=== PATIENT | female | born 1975 | race Caucasian/White ===

== ENCOUNTER 2020-01-02 11:59 | Inpatient (IN) ==
[2020-01-02] MEDS ORDERED: Ibuprofen 600 MG TABLET PO ONE (12:20)
[2020-01-02 12:43] LABS: Hematocrit 40.5 % (35.3-44.9); Hemoglobin 13.4 g/dL (11.5-15.4); Mean Corpuscular HGB Conc 33.1 g/dL (31.6-35.5); Mean Corpuscular Hemoglobin 30.2 pg (28.0-33.3); Mean Corpuscular Volume 91.4 fL (83.0-100.0); Mean Platelet Volume 9.7 fL (9.4-12.4); Platelet Count 303 K/mcL (140-400); Red Blood Count 4.43 M/mcL (3.82-4.97); Red Cell Distribution Width 12.2 % (11.5-14.5); White Blood Count 8.2 K/mcL (4.3-11.1)
[2020-01-02 13:09] LABS: Alanine Aminotransferase 11 Units/L (7-52); Albumin 4.3 g/dL (3.5-5.7); Albumin/Globulin Ratio 1.6 (1.1-2.2); Alkaline Phosphatase 51 Units/L (34-104); Aspartate Amino Transferase 13 Units/L (13-39); BUN/Creatinine Ratio 26 (6-26); Bilirubin,Direct 0.1 mg/dL (0.0-0.2); Bilirubin,Indirect 0.3 mg/dL (0.0-1.0); Bilirubin,Total 0.4 mg/dL (0.3-1.0); Blood Urea Nitrogen 13 mg/dL (6-20); Calcium 9.3 mg/dL (8.6-10.3); Carbon Dioxide 25 mEq/L (23-29); Chloride 105 mEq/L (98-107); Globulin 2.7 g/dL (2.4-3.5); Glucose 95 mg/dL (70-105); Lipase 21 Units/L (11-82); Osmolality,Calculated 288 (280-300); Potassium 3.6 mEq/L (3.5-5.1); Sodium 139 mEq/L (136-145); eGFR For African Americans > 60 (> 60); eGFR For Non-African Americans > 60 (> 60)
[2020-01-02 14:01] LABS: Troponin I < 0.03 ng/mL (< 0.04)
[2020-01-02] MEDS ORDERED: Aspirin 325 MG TABLET PO ONE (16:01)
[2020-01-02] MEDS ORDERED: Naloxone 0.4 MG/ML INJ IVP PRN (16:37)
[2020-01-02] MEDS ORDERED: Acetaminophen 325 MG TABLET PO PRN (17:33)
[2020-01-02] MEDS ORDERED: Ringers Solution, Lactated 1,000 ML IVC SCH (17:45)
[2020-01-02] MEDS: *HR* HYDROcodone/Acet 5/325 mg TABLET PO PRN ×2 (17:59→23:39)
[2020-01-02] MEDS: Pantoprazole 40 MG VIAL IVP SCH (17:59)
[2020-01-02] MEDS: Nicotine 21 MG PATCH.TD24 TD SCH (19:31)
[2020-01-02 19:57] LABS: Bilirubin,Urine Negative (Negative); Blood,Urine Negative (Negative); Clarity,Urine Clear (Clear); Color,Urine Colorless (Yellow); Glucose,Urine (UA) Normal (Normal); Ketones,Urine Trace mg/dL (Negative); Leukocyte Esterase,Urine Negative (Negative); Nitrite,Urine Negative (Negative); Protein,Urine Negative (Neg-Trace); Specific Gravity,Urine 1.009 (1.010-1.025); Urobilinogen,Urine Normal (Normal)
[2020-01-02 20:05] LABS: Amphetamine Screen,Urine Negative ng/mL (Cutoff=1000); Barbiturate Screen,Urine Negative ng/mL (Cutoff=200); Benzodiazepines Screen,Urine Negative ng/mL (Cutoff=200); Cannabinoid Screen,Urine Negative ng/mL (Cutoff = 50); Cocaine Screen,Urine Negative ng/mL (Cutoff= 300); Opiate Screen,Urine Negative ng/mL (Cutoff=300); Phencyclidine Screen,Urine Negative ng/mL (Cutoff=25)
[2020-01-02] MEDS ORDERED: Melatonin 3 MG TABLET PO ONE (23:32)
[2020-01-03 03:29] LABS: Basophils % 0.5 %; Eosinophils # 0.1 K/mcL (0.0-0.6); Eosinophils % 1.1 %; Hematocrit 35.3 % (35.3-44.9); Immature Granulocytes % 0.3 % (0-4); Lymphocytes # 3.4 K/mcL (0.6-4.6); Lymphocytes % 45.8 %; Mean Corpuscular HGB Conc 32.6 g/dL (31.6-35.5); Mean Corpuscular Hemoglobin 30.6 pg (28.0-33.3); Mean Corpuscular Volume 93.9 fL (83.0-100.0); Mean Platelet Volume 9.5 fL (9.4-12.4); Monocytes # 0.4 K/mcL (0.0-1.3); Monocytes % 4.8 %; Neutrophils # 3.5 K/mcL (1.6-8.9); Platelet Count 240 K/mcL (140-400); Red Blood Count 3.76 M/mcL (3.82-4.97); Red Cell Distribution Width 12.2 % (11.5-14.5); Segmented Neutrophils % 47.5 %; White Blood Count 7.3 K/mcL (4.3-11.1)
[2020-01-03 03:32] LABS: Hemoglobin 11.5 g/dL (11.5-15.4)
[2020-01-03 03:49] LABS: BUN/Creatinine Ratio 29 (6-26); Blood Urea Nitrogen 16 mg/dL (6-20); Calcium 8.7 mg/dL (8.6-10.3); Carbon Dioxide 26 mEq/L (23-29); Chloride 106 mEq/L (98-107); Chol/HDL Ratio 3.7 (0-4.9); Glucose 101 mg/dL (70-105); Osmolality,Calculated 287 (280-300); Potassium 3.5 mEq/L (3.5-5.1); Sodium 138 mEq/L (136-145); eGFR For African Americans > 60 (> 60); eGFR For Non-African Americans > 60 (> 60)
[2020-01-03] MEDS ORDERED: Regadenoson 0.4 MG/5 ML SYRINGE IVP ONE (06:19)
[2020-01-03 08:17] LABS: Estimated Average Glucose 126 mg/dl
[2020-01-03] MEDS ORDERED: *HR* LORazepam 2 MG/ML VIAL IVP ONE (09:10)
[2020-01-03] MEDS: Nicotine 21 MG PATCH.TD24 TD SCH (11:50)
[2020-01-03] MEDS: Aspirin Enteric Coated 81 MG Tablet PO SCH (11:51)
[2020-01-03] MEDS: *HR* OxyCODONE Immed Rel 5 MG TABLET PO PRN ×2 (11:51→20:41)
[2020-01-03] MEDS: Pantoprazole 40 MG VIAL IVP SCH (11:52)
[2020-01-03] MEDS: *HR* HYDROcodone/Acet 5/325 mg TABLET PO PRN (17:11)
[2020-01-03] MEDS: *HR* Heparin 5,000 UNIT/ML VIAL SQ SCH (17:11)
[2020-01-03] MEDS ORDERED: Ondansetron 4 MG/2 ML VIAL IVP ONE (21:58)
[2020-01-04] MEDS ORDERED: *HR* LORazepam 2 MG/ML VIAL IVP ONE ×2 (01:41→10:01)
[2020-01-04 02:53] LABS: Hematocrit 36.8 % (35.3-44.9); Hemoglobin 11.6 g/dL (11.5-15.4); Mean Corpuscular HGB Conc 31.5 g/dL (31.6-35.5); Mean Corpuscular Hemoglobin 29.7 pg (28.0-33.3); Mean Corpuscular Volume 94.4 fL (83.0-100.0); Mean Platelet Volume 9.8 fL (9.4-12.4); Platelet Count 248 K/mcL (140-400); Red Cell Distribution Width 11.9 % (11.5-14.5); White Blood Count 7.9 K/mcL (4.3-11.1)
[2020-01-04 03:10] LABS: BUN/Creatinine Ratio 37 (6-26); Blood Urea Nitrogen 18 mg/dL (6-20); Calcium 8.8 mg/dL (8.6-10.3); Carbon Dioxide 26 mEq/L (23-29); Chloride 105 mEq/L (98-107); Glucose 135 mg/dL (70-105); Osmolality,Calculated 290 (280-300); Potassium 3.5 mEq/L (3.5-5.1); Sodium 138 mEq/L (136-145); eGFR For African Americans > 60 (> 60); eGFR For Non-African Americans > 60 (> 60)
[2020-01-04] MEDS ORDERED: Metoclopramide 10 MG/2 ML VIAL IVP ONE (03:25)
[2020-01-04] MEDS: *HR* Heparin 5,000 UNIT/ML VIAL SQ SCH ×2 (03:30→14:50)
[2020-01-04] MEDS: Pantoprazole 40 MG VIAL IVP SCH (08:22)
[2020-01-04] MEDS: Nicotine 21 MG PATCH.TD24 TD SCH (08:22)
[2020-01-04] MEDS: *HR* OxyCODONE Immed Rel 5 MG TABLET PO PRN ×2 (08:22→14:46)
[2020-01-04] MEDS: Aspirin Enteric Coated 81 MG Tablet PO SCH (08:22)
[2020-01-04] MEDS ORDERED: *HR* LORazepam 0.5 MG TABLET PO ONE (14:18)
[2020-01-04] MEDS ORDERED: hydrOXYzine pamoate 25 MG CAPSULE PO PRN (15:21)
[2020-01-04] MEDS ORDERED: Morphine Sulfate 2 MG/ML SYRINGE IVP ONE (20:49)
[2020-01-05] MEDS: *HR* OxyCODONE Immed Rel 5 MG TABLET PO PRN ×2 (02:22→08:57)
[2020-01-05] MEDS: *HR* Heparin 5,000 UNIT/ML VIAL SQ SCH ×2 (05:19→18:10)
[2020-01-05 05:30] LABS: Hematocrit 37.3 % (35.3-44.9); Mean Corpuscular HGB Conc 32.2 g/dL (31.6-35.5); Mean Corpuscular Volume 93.3 fL (83.0-100.0); Mean Platelet Volume 9.7 fL (9.4-12.4); Platelet Count 264 K/mcL (140-400); Red Cell Distribution Width 11.8 % (11.5-14.5); White Blood Count 6.8 K/mcL (4.3-11.1)
[2020-01-05] MEDS: Nicotine 21 MG PATCH.TD24 TD SCH (06:44)
[2020-01-05] MEDS: Pantoprazole 40 MG VIAL IVP SCH (08:47)
[2020-01-05] MEDS: Aspirin Enteric Coated 81 MG Tablet PO SCH (08:47)
[2020-01-05] MEDS ORDERED: *HR* LORazepam 2 MG/ML VIAL IVP PRN (13:20)
[2020-01-05] MEDS: *HR* HYDROcodone/Acet 5/325 mg TABLET PO PRN (15:58)
[2020-01-05] MEDS: QUEtiapine Fumarate 100 MG TABLET PO SCH (20:32)
[2020-01-05] MEDS: Divalproex (12 HR) 250 MG TABLET PO SCH (20:32)
[2020-01-06 03:46] LABS: Hematocrit 38.1 % (35.3-44.9); Mean Corpuscular HGB Conc 31.5 g/dL (31.6-35.5); Mean Corpuscular Hemoglobin 30.2 pg (28.0-33.3); Mean Platelet Volume 9.8 fL (9.4-12.4); Platelet Count 240 K/mcL (140-400); Red Blood Count 3.97 M/mcL (3.82-4.97); White Blood Count 6.2 K/mcL (4.3-11.1)
[2020-01-06] MEDS: *HR* Heparin 5,000 UNIT/ML VIAL SQ SCH ×2 (05:42→17:38)
[2020-01-06] MEDS: *HR* OxyCODONE Immed Rel 5 MG TABLET PO PRN ×3 (06:53→20:13)
[2020-01-06] MEDS: Divalproex (12 HR) 250 MG TABLET PO SCH ×2 (07:53→20:12)
[2020-01-06] MEDS: Nicotine 21 MG PATCH.TD24 TD SCH (07:53)
[2020-01-06] MEDS: Aspirin Enteric Coated 81 MG Tablet PO SCH (07:53)
[2020-01-06] MEDS ORDERED: diazePAM 5 MG TABLET PO ONE ×2 (13:10→13:56)
[2020-01-06] MEDS: QUEtiapine Fumarate 100 MG TABLET PO SCH (20:12)
[2020-01-06] MEDS ORDERED: *HR* LORazepam 2 MG/ML VIAL IVP ONE ×2 (20:56)
[2020-01-07] MEDS: *HR* HYDROcodone/Acet 5/325 mg TABLET PO PRN ×3 (01:13→19:51)
[2020-01-07] MEDS: *HR* OxyCODONE Immed Rel 5 MG TABLET PO PRN ×3 (03:06→15:40)
[2020-01-07] MEDS: *HR* Heparin 5,000 UNIT/ML VIAL SQ SCH ×2 (06:14→17:19)
[2020-01-07 07:17] LABS: Basophils % 0.6 %; Eosinophils # 0.1 K/mcL (0.0-0.6); Eosinophils % 1.9 %; Hematocrit 38.4 % (35.3-44.9); Hemoglobin 12.4 g/dL (11.5-15.4); Immature Granulocytes % 0.5 % (0-4); Lymphocytes # 2.4 K/mcL (0.6-4.6); Lymphocytes % 37.7 %; Mean Corpuscular HGB Conc 32.3 g/dL (31.6-35.5); Mean Corpuscular Hemoglobin 30.4 pg (28.0-33.3); Mean Corpuscular Volume 94.1 fL (83.0-100.0); Mean Platelet Volume 9.4 fL (9.4-12.4); Monocytes # 0.3 K/mcL (0.0-1.3); Monocytes % 4.2 %; Neutrophils # 3.5 K/mcL (1.6-8.9); Platelet Count 229 K/mcL (140-400); Red Blood Count 4.08 M/mcL (3.82-4.97); Red Cell Distribution Width 12.2 % (11.5-14.5); Segmented Neutrophils % 55.1 %; White Blood Count 6.4 K/mcL (4.3-11.1)
[2020-01-07 07:28] LABS: BUN/Creatinine Ratio 34 (6-26); Blood Urea Nitrogen 18 mg/dL (6-20); Carbon Dioxide 26 mEq/L (23-29); Chloride 104 mEq/L (98-107); Glucose 116 mg/dL (70-105); Osmolality,Calculated 283 (280-300); Potassium 4.1 mEq/L (3.5-5.1); Sodium 135 mEq/L (136-145); eGFR For African Americans > 60 (> 60); eGFR For Non-African Americans > 60 (> 60)
[2020-01-07] MEDS: Aspirin Enteric Coated 81 MG Tablet PO SCH (08:06)
[2020-01-07] MEDS: Nicotine 21 MG PATCH.TD24 TD SCH (08:08)
[2020-01-07] MEDS: Divalproex (12 HR) 250 MG TABLET PO SCH ×2 (08:08→20:16)
[2020-01-07] MEDS ORDERED: MOM Conc 10 ML UD.LIQ PO ONE (09:25)
[2020-01-07] MEDS: polyethylene glycoL 3350 17 GM POWD.PACK PO SCH (12:44)
[2020-01-07] MEDS ORDERED: *HR* LORazepam 1 MG TABLET PO ONE (14:56)
[2020-01-07] MEDS ORDERED: *HR* LORazepam 2 MG/ML VIAL IVP ONE (19:50)
[2020-01-07] MEDS: QUEtiapine Fumarate 100 MG TABLET PO SCH (20:16)
[2020-01-08] MEDS: *HR* Heparin 5,000 UNIT/ML VIAL SQ SCH ×2 (05:09→17:09)
[2020-01-08] MEDS: Nicotine 21 MG PATCH.TD24 TD SCH (08:42)
[2020-01-08] MEDS: Divalproex (12 HR) 250 MG TABLET PO SCH ×2 (08:43→19:54)
[2020-01-08] MEDS: Aspirin Enteric Coated 81 MG Tablet PO SCH (08:43)
[2020-01-08] MEDS: polyethylene glycoL 3350 17 GM POWD.PACK PO SCH (08:43)
[2020-01-08] MEDS: *HR* OxyCODONE Immed Rel 5 MG TABLET PO PRN ×3 (08:49→23:48)
[2020-01-08] MEDS ORDERED: Perflutren Lipid Microsphere 1.3 ML in 0.9 % Sodium Chloride 8.7 ML IVP ONE (09:28)
[2020-01-08] MEDS: Ketorolac 30 MG/ML VIAL IVP SCH ×3 (10:10→23:51)
[2020-01-08] MEDS ORDERED: *HR* Promethazine 25 MG/ML VIAL IVP PRN (12:47)
[2020-01-08] MEDS: QUEtiapine Fumarate 100 MG TABLET PO SCH (19:54)
[2020-01-08] MEDS: *HR* HYDROcodone/Acet 5/325 mg TABLET PO PRN (19:54)
[2020-01-09 01:16] LABS: Albumin 3.7 g/dL (3.5-5.7); Albumin/Globulin Ratio 1.4 (1.1-2.2); Bilirubin,Direct 0.1 mg/dL (0.0-0.2); Bilirubin,Indirect 0.2 mg/dL (0.0-1.0); Bilirubin,Total 0.3 mg/dL (0.3-1.0); Globulin 2.6 g/dL (2.4-3.5); Total Protein 6.3 g/dL (6.4-8.9)
[2020-01-09] MEDS: *HR* Heparin 5,000 UNIT/ML VIAL SQ SCH (07:10)
[2020-01-09] MEDS: Ketorolac 30 MG/ML VIAL IVP SCH ×2 (07:10→12:11)
[2020-01-09] MEDS ORDERED: IVABRADINE HCL 7.5 MG TABLET PO ONE (07:30)
[2020-01-09] MEDS ORDERED: *HR* LORazepam 2 MG/ML VIAL IVP ONE (07:59)
[2020-01-09] MEDS ORDERED: Isovue-370 500 ML BOTTLE IVP ONE (08:00)
[2020-01-09] MEDS ORDERED: Nitroglycerin 0.4 MG TAB.SUBL SL ONE ×2 (09:27→09:33)
[2020-01-09] MEDS ORDERED: *HR* Metoprolol 5 MG/5 ML VIAL IVP ONE ×3 (09:27→10:30)
[2020-01-09] MEDS ORDERED: 0.9 % Sodium Chloride 500 ML IVC ONE (10:28)
[2020-01-09] MEDS: Nicotine 21 MG PATCH.TD24 TD SCH (10:35)
[2020-01-09] MEDS: polyethylene glycoL 3350 17 GM POWD.PACK PO SCH (10:39)
[2020-01-09] MEDS: Aspirin Enteric Coated 81 MG Tablet PO SCH (10:39)
[2020-01-09] MEDS: Divalproex (12 HR) 250 MG TABLET PO SCH (10:39)
[2020-01-09 12:17] VITALS: BP 95/65
== END 2020-01-09 12:59 | disposition left against medical advice (07) | DRG 552 ==
LOC: EMEROOARM 11:59 → 3BNU 11:59 → SUATTDRO 16:33 → 3BNU 16:53 → SUATTDRO 01-04 16:18 → 3NENU 01-05 15:51
PROVIDERS: ADMIT Internal Medicine; ATTEND Student in an Organized Health Care Education/Training Program